=== PATIENT | female | born 1940 | race Caucasian/White ===

== ENCOUNTER 2020-11-22 19:12 | Observation (INO) | payer OTHER ==
--- OUTSIDE RECORDS SUMMARY | 2020-11-22 19:17 | XMS REPORT | Continuity of Care Document ---
:[address] [facility] t Address [address] [place] [address] Care Team Providers Name Role Phone Demetrius MIMS Primary Care Physician Alicia Romo Attending Clinician Anne MIMS, RZabrina Attending Clinician KALPANA Attending Clinician Unavailable VISIT, STRB XRAY Attending Clinician Unavailable Ganesh Lott Attending Clinician Gee Attending Clinician Anjana Farooq Attending Clinician Leandro Bowman Attending Clinician Payers Payer Name Policy Type Policy Number Effective Date Expiration Date S ource Problems Condition Condition Condition Status Onset Resolution Last Treating Co mments Source Name Details Category Date Date Treatment Clinician Date Subcutaneo Subcutaneo Disease Active Overview : Methodi us mass of us mass of 1-[address] right right 00:00: g of this [facility]osp[facility] thumb thumb 00 note l might be different from the original. Added automatic ally from request for surgery [id number] R13.10 - Diagnosis Active 2014-032015-01-12 M emoria "DYSPHAGIA 0-20 10:58:00 l , R13.10 - 00:01: Jhon alonso UNSPECIFIE "DYSPHAGIA 00 D" , UNSPECIFIE D" Active 5 [facility] [place] Hypothyroi Problem Active 2020-07-15 emoria dism 11-21 21:33:12 l (disorder) 00:00: Jhon n Hypothyroi 00 dism (disorder) Active 11/21/2013 Problem 07/15/2020 Data migrated from GE Lailaihuicity on 08/16/14. Medical Group,[facility] [place] Non-toxic Problem Active 2020-07-15 Mi moria multinodul 11-21 21:33:12 l ar goiter 00:00: [place] (disorder) Non-toxic 00 multinodul ar goiter (disorder) Active 11/21/2013 Problem 07/15/2020 Data migrated from GE Lailaihuicity on 08/16/14. [facility] [place] HYPOTHYROI Condition Active 2013-11-21 Memoria DISM 11-21 15:51:00 l 00:00: [place] HYPOTHYROI 00 DISM Active 11/21/2013 Condition 4 Medical Group GOITER, Condition Active 2013-11-21 Mi moria NONTOXIC 11-21 15:51:00 l MULTINODUL GOITER, 00:00: Her dickens AR NONTOXIC 00 MULTINODUL AR Active 4 Condition 11/21/2013 Medical Group Cystoid Problem Active 2020-07-15 Ulises promise macular 09-10 21:33:12 l retinal Cystoid 00:00: Jhon n degenerati macular 00 on retinal (disorder) degenerati on (disorder) Active 09/10/2012 Problem 07/15/2020 Data migrated from GE Lailaihuicity on 08/16/14. [facility] [place] Disorder Problem Active 2020-07-15 Mem oria of 09-10 21:33:12 l refraction Disorder 00:00: He rmann AND/OR of 00 accommodat refraction ion AND/OR (disorder) accommodat ion (disorder) Active 09/10/2012 Problem 07/15/2020 Data migrated from GE Lailaihuicity on 08/16/14. [facility] [place] CYSTOID Condition Active 2013-11-21 Me moria MACULAR 09-10 15:51:00 l DEGENERATI CYSTOID 00:00: Her dickens ON OF MACULAR 00 RETINA DEGENERATI ON OF RETINA Active 09/10/2012 Condition 4 Medical Group UNSPECIFIE Condition Active 2013-11-21 Memoria D DISORDER 09-10 15:51:00 l OF 00:00: [place] REFRACTION UNSPECIFIE 00 &ACCOMMODA D DISORDER TION OF REFRACTION &ACCOMMODA TION Active 09/10/2012 Condition 4 Medical Group Osteopenia Problem Active 2020-07-15 M emoria (disorder) 07-17 21:33:12 l 00:00: [place] Osteopenia 00 (disorder) Active 07/17/2012 Problem 07/15/2020 Data migrated from GE Lailaihuicity on 08/16/14. [facility] [place] OSTEOPENIA Condition Active 2013-11-21 Memoria 07-17 15:51:00 l 00:00: [place] OSTEOPENIA 00 Active 07/17/2012 Condition 4 Medical Group PREVENTIVE Condition Active 2013-11-21 Memoria HEALTH 07-17 15:51:00 l CARE 00:00: [place] PREVENTIVE 00 HEALTH CARE Active 07/17/2012 Condition 4 Medical [facility] Cortical Problem Active 2011-032020-07-15 Mem oria senile 0-18 21:33:12 l cataract Cortical 00:00: Herm adriane (disorder) senile 00 cataract (disorder) Active 01/05/2012 Problem 07/15/2020 Data migrated from GE Centricity on 08/16/14. Medical [facility] [place] Gastroesop Problem Active 2011-032020-07-15 M emoria hageal 0-18 21:33:12 l reflux 00:00: [place] disease Gastroesop 00 (disorder) hageal reflux disease (disorder) Active 01/05/2012 Problem 07/15/2020 Data migrated from GE Centricity on 08/16/14. [facility] [place] Pseudophak Problem Active 2011-032020-07-15 M emoria ia 0-18 21:33:12 l (disorder) 00:00: Jhon n Pseudophak 00 ia (disorder) Active 01/05/2012 Problem 07/15/2020 Data migrated from GE Centricity on 08/16/14. Medical Group,[facility] [place] GERD Condition Active 2011-032013-11-21 Mem oria 0-18 15:51:00 l GERD 00:00: [place] 00 Active 01/05/2012 Condition 4 Medical Group CATARACT, Condition Active 2011-032013-11-21 Memoria SENILE, 0-18 15:51:00 l CORTICAL 00:00: [place] CATARACT, 00 SENILE, CORTICAL Active 01/05/2012 Condition 4 Medical Group PSEUDOPHAK Condition Active 2011-032013-11-21 Memoria IA 0-18 15:51:00 l 00:00: [place] PSEUDOPHAK 00 IA Active 2 Condition 11/21/2013 Medical Group DIABETES Problem 2016-04-03 Mem oria MELLITUS 1- 05:00:25 l DIABETES 00:00: Jhon n MELLITUS 00 1 Problem 7 [facility] [place] Hypertensi Problem 2016-04-03 M emoria ve 1- 05:00:25 l disorder, 00:00: [place] systemic Hypertensi 00 arterial ve (disorder) disorder, systemic arterial (disorder) 03/20/1980 Problem 04/03/2016 [facility] Hyperlipid Problem 2016-04-03 M emoria emia 1- 05:00:25 l (disorder) 00:00: Jhon n Hyperlipid 00 emia (disorder) 03/20/1980 Problem 04/03/2016 [facility] [place] Mixed Problem Active 2020-07-15 Memor ia hyperlipid 03-20 21:33:12 l emia Mixed 00:00: [place] (disorder) hyperlipid 00 emia (disorder) Active [birth year]20/1959 Problem 07/15/2020 Data migrated from MessageBunkerty on 08/16/14. Medical Group, [facility] [place] MIXED Condition Active 2013-11-21 Mem oria HYPERLIPID 1- 15:51:00 l EMIA MIXED 00:00: [place] HYPERLIPID 00 EMIA Active 03/20/1959 Condition 4 Medical Group Foot pain Problem 2016-04-03 Me moria (finding) 05:00:25 l Foot [place] pain (finding) Problem 04/03/2016 [facility] Entire Problem 2016-04-03 Memor ia retina 05:00:25 l (body Entire [place] structure) retina (body structure) Problem 04/03/2016 1follows up with eye doctor regularly [facility] Diabetes Problem Active 2020-07-15 Mem oria mellitus 21:33:12 l (disorder) Diabetes He rmann mellitus (disorder) Active Problem 07/15/2020 Data migrated from [email or web address] on 08/16/14. [facility] [place] Essential Problem Active 2020-07-15 Me moria hypertensi 21:33:12 l on [place] (disorder) Essential hypertensi on (disorder) Active Problem 07/15/2020 Data migrated from [email or web address] on 08/16/14. [facility] [place] UNSPECIFIE Condition Active 2013-11-21 Memoria D 15:51:00 l ESSENTIAL [place] HYPERTENSI UNSPECIFIE ON D ESSENTIAL HYPERTENSI ON Active Condition 11/21/2013 Medical Group DM Condition Active 2013-11-21 Mem oria 15:51:00 l DM [place] Active Condition 11/21/2013 Medical Group PURE Condition Active 2013-11-21 Mem oria HYPERCHOLE 15:51:00 l STEROLEMIA PURE Jhon n HYPERCHOLE STEROLEMIA Active Condition 11/21/2013 Medical Group History of Past Illness Condition Condition Condition Status Onset Resolution Last Treating Co mments Source Name Details Category Date Date Treatment Clinician Date ACUTE Condition Inactiv 2011-032013-11-21 2013-11-21 Memoria ATOPIC e 0-18 15:51:00 15:51:00 l CONJUNCTIV ACUTE 00:00: Yasemin nn ITIS ATOPIC 00 CONJUNCTIV ITIS Inactive 01/05/2012 Condition 4 Medical Group Allergies, Adverse Reactions, Alerts This patient has no known allergies or adverse reactions. Family History Family Member Diagnosis Comments Start Date Stop Date Source Natural father [facility] Natural mother [facility] Natural mother Heart disease [facility] Social History Social Habit Start Date Stop Date Quantity Comments Source History [facility] St[facility] Drinks Hospit al History SDOH [facility] Tobacco use and 2020-07-22 2020-07-22 Never used [facility] exposure 00:00:00 00:00:00 Hospital Alcohol intake 2020-07-22 2020-07-22 Lifetime [facility] 00:00:00 00:00:00 non-drinker Hospital (finding) History SDOH 2020-06-12 2020-06-12 1 [facility] Alcohol Frequency 00:00:00 00:00:00 Hospita l Social History 2016-03-23 2016-03-23 [facility] 14:17:21 14:17:21 Sex [birth year] At [birth year] F [facility] 00:00:00 00:00:00 Hospital Smoking Status Start Date Stop Date Source Never smoker [facility] Medications Ordered Filled Start Stop Current Ordering Indication Dosage Frequency Signature Comments Components Source Medication Medication Date Date Medication? Clinician (SIG) Name Name ondansetron Yes 4mg Q8H Take 1 Meth jayashree ODT (Zofran 06-12 tablet (4 st ODT) 4 MG 00:00: mg total) Hos shakila disintegrat 00 by mouth l ing tablet every 8 (eight) hours as needed for nausea for up to 10 doses. nitrofurant No 100mg Q.5D Take 1 Me thodi oin, 06-[address] macrocrysta 00:00: 04:59 (100 mg Ho spita l-monohydra 00 :00 total) by l te, mouth 2 (MACROBID) (two) 100 MG times a capsule day for 7 days. Sulfamethox Yes 1 tab, PO, Memoria azole 800 -06 BID, X 7 l MG / 20:04: day, # 14 [place] Trimethopri 00 tab, 0 m 160 MG Refill(s), Oral Tablet Pharmacy: [Bactrim] [facility], 154.94, cm, 09/23/19 14:38:00 CDT, Height, 67.955, kg, 09/23/19 14:38:00 CDT, Weight levothyroxi Yes 50ug QD Take 50 Met hodi ne 1-[address] (SYNTHROID, 20:25: mouth Hospi ta LEVOXYL) 50 54 every l mcg tablet morning. CALCIUM Yes Take by Methodi ORAL 1-[address] 20:25: Hospita 54 l benzonatate Yes 100 mg = 1 Memoria 100 MG Oral 6-05 cap, PO, l Capsule 19:53: TID, PRN Jhon n [Tessalon 00 as needed Perles] for cough, X 10 day, # 30 cap, 0 Refill(s), Pharmacy: [facility] Doxycycline Yes 100 mg = 1 Memoria Monohydrate 6-05 tab, PO, l 100 MG Oral 19:53: Q12H, X 7 H ermann Tablet 00 day, # 14 tab, 0 Refill(s), Pharmacy: [facility] Cefuroxime No 500 mg = 1 M emoria 500 MG Oral 6-03 tab, PO, l Tablet 12:48: BID, X 10 Jhon n [Ceftin] 00 day, # 20 tab, 0 Refill(s), Pharmacy: [facility] 3 ML Yes 9 unit, Memoria Insulin, 6-03 SUB-Q, l Aspart, 12:37: TID-Before Herm adriane Human 100 00 Meals, 0 UNT/ML Pen Refill(s) Injector [NovoLog] irbesartan Yes Methodi (AVAPRO) 2-24 st 150 MG 00:00: Hospita tablet 00 l pravastatin Yes Method i (PRAVACHOL) 2-24 st 10 MG 00:00: Hospita tablet 00 l HUMALOG Yes Methodi KWIKPEN 100 2-22 st unit/mL 00:00: Hospita injection 00 l pen LANTUS Yes Methodi SOLOSTAR 1-24 st 100 unit/mL 00:00: Hospit a injection 00 l (pen) Lactated No René IV, start M emoria Ringers 1-13 Rivera date l Injection 16:30: 04/01/16 Herm adriane 00 10:30:00 SKI PRODUCTION SUPERVISOR, stop date 04/01/16 10:30:00 SKI [employer]ODUCTION SUPERVISOR ondansetron No René 4 mg = 2 Memoria 1-13 Rivera mL, l 15:56: Injection, [place] 00 IV, Once, first dose 04/01/16 9:56:00 SKI PRODUCTION SUPERVISOR, stop date 04/01/16 9:56:00 SKI PRODUCTION SUPERVISOR ketorolac No René 15 mg = Me moria 1-13 Rivera 0.5 mL, l 15:56: Injection, [place] 00 IV, Once, first dose 04/01/16 9:56:00 SKI PRODUCTION SUPERVISOR, stop date 04/01/16 9:56:00 SKI PRODUCTION SUPERVISOR HYDROmorpho No René 0.5 mg = Memoria ne 1-13 [place] 0.25 mL, l 15:32: Injection, [place] 00 IV, Once, first dose 04/01/16 9:32:00 SKI PRODUCTION SUPERVISOR, stop date 04/01/16 9:32:00 SKI PRODUCTION SUPERVISOR promethazin No René 12.5 mg = Memoria e 1-13 [place] 0.5 mL, l 15:05: Injection, [place] 00 IM, Once PRN for severe nausea, first dose 04/01/16 9:05:00 SKI PRODUCTION SUPERVISOR ondansetron No René 4 mg = 2 Memoria 1-13 Rivera mL, l 15:05: Injection, [place] 00 IV Push, q15min PRN for nausea/vom iting, order duration: 2 doses, first dose 04/01/16 9:05:00 SKI PRODUCTION SUPERVISOR, stop date Limited # of times diphenhydrA No René 25 mg = Memoria MINE 1-13 [place] 0.5 mL, l 15:05: Injection, [place] 00 IV Push, Once PRN for itching, first dose 04/01/16 9:05:00 SKI PRODUCTION SUPERVISOR Saline Lock No René 10 mL, M emoria Flush 1-13 [place] Soln, IV l 15:05: Push, As Indicated PRN for flush, first dose 04/01/16 9:05:00 SKI PRODUCTION SUPERVISOR LR 1,000 mL No René 1,000 mL, Memoria 1-13 Rivera IV, 75 l 15:05: mL/hr, [place] 00 start date 04/01/16 9:05:00 SKI PRODUCTION SUPERVISOR Dilaudid No René 0.5 mg = Me moria 1-13 [place] 0.25 mL, l 15:05: Injection, [place] 00 IV Push, q10min PRN for pain severe (7-10), first dose 04/01/16 9:05:00 SKI PRODUCTION SUPERVISOR Xopenex 2016- No René 0.63 mg = Me moria 0.63 mg/3 1-13 Rivera 3 mL, l mL 15:05: Soln, NEB, [place] inhalation 00 Once PRN solution for wheezing, first dose 04/01/16 9:05:00 SKI PRODUCTION SUPERVISOR Demerol HCl No René 12.5 mg = Memoria 1-13 [place] 0.25 mL, l 15:05: Injection, [place] 00 IV Push, Once PRN for shivers, first dose 04/01/16 9:05:00 [employer]I [employer]ODUCTION SUPERVISOR midazolam No René 1 mg = 1 M emoria 1-13 Rivera mL, l 15:04: Injection, [place] 00 IV, Once, first dose 04/01/16 9:04:00 SKI PRODUCTION SUPERVISOR, stop date 04/01/16 9:04:00 SKI PRODUCTION SUPERVISOR fentaNYL No René 50 mcg = 1 Memoria 1-13 [place] mL, l 15:04: Injection, [place] 00 IV, Once, first dose 04/01/16 9:04:00 SKI PRODUCTION SUPERVISOR, stop date 04/01/16 9:04:00 SKI PRODUCTION SUPERVISOR dexamethaso No René 8 mg = 2 Memoria ne 1-13 [place] mL, l 15:03: Injection, [place] 00 IV, Once, first dose 04/01/16 9:03:00 SKI PRODUCTION SUPERVISOR, stop date 04/01/16 9:03:00 SKI PRODUCTION SUPERVISOR Misc No René 1,000 mL, Memor ia Medication 04-01 [place] Soln-IV, l 15:00: IV, Once, [place] 00 first dose 04/01/16 9:00:00 SKI PRODUCTION SUPERVISOR, stop date 04/01/16 9:00:00 SKI PRODUCTION SUPERVISOR ceFAZolin 0 No René 2 gm, Ulises promise 1-13 [place] Soln-IV, l 15:00: IV [place] 00 Piggyback, Once, first dose 04/01/16 9:00:00 SKI PRODUCTION SUPERVISOR, stop date 04/01/16 9:00:00 SKI PRODUCTION SUPERVISOR ePHEDrine No René 10 mg = Me moria 1-13 Rivera 0.2 mL, l 14:57: Injection, [place] 00 IV, Once, first dose 04/01/16 8:57:00 SKI PRODUCTION SUPERVISOR, stop date 04/01/16 8:57:00 SKI PRODUCTION SUPERVISOR lidocaine No René 3 mL, Ulises promise 04-01 [place] Injection, l 14:56: IV, Once, first dose 04/01/16 8:56:00 SKI PRODUCTION SUPERVISOR, stop date 04/01/16 8:56:00 SKI PRODUCTION SUPERVISOR propofol No René 100 mg = Me moria 04-01 [place] 10 mL, l 14:56: Emulsion, [place] 00 IV, Once, first dose 04/01/16 8:56:00 SKI PRODUCTION SUPERVISOR, stop date 04/01/16 8:56:00 SKI PRODUCTION SUPERVISOR fentaNYL No René 50 mcg = 1 Memoria 04-01 [place] mL, l 14:50: Injection, IV, Once, first dose 04/01/16 8:50:00 SKI PRODUCTION SUPERVISOR, stop date 04/01/16 8:50:00 SKI PRODUCTION SUPERVISOR midazolam No René 1 mg = 1 M emoria 04-01 [place] mL, l 14:50: Injection, IV, Once, first dose 04/01/16 8:50:00 SKI PRODUCTION SUPERVISOR, stop date 04/01/16 8:50:00 SKI PRODUCTION SUPERVISOR ceFAZolin No Matthew Montoya 2 gm, M emoria 04-01 Soln-IV, l 12:00: IV Piggyback, Once, infuse over 30 minutes, first dose 04/01/16 6:00:00 SKI PRODUCTION SUPERVISOR, stop date 04/01/16 6:00:00 SKI PRODUCTION SUPERVISOR, patient weight 50-120 kg, Prophylaxi s Lidocaine No Mikhail K 0.2 mL, Mem oria 2% 0.2 mL 04-01 Pineda Injection, l IV Start 11:32: Subcutaneo Her dickens [[facility]] 00 us, Once PRN for other (see comment), first dose 04/01/16 5:32:00 SKI PRODUCTION SUPERVISOR LR 1,000 mL No Mikhail K 1,000 mL, Memoria 04-01 Pineda IV, 30 l 11:32: mL/hr, [place] start date 04/01/16 5:32:00 SKI PRODUCTION SUPERVISOR atorvastati Yes 40 mg = 1 M emoria n 40 mg 03-28 tabs, l oral tablet 19:34: Oral, Yasemin nn 00 Daily, 0 Refill(s), high cholestero l HumaLOG Yes 10 units, Memor ia 03-28 Subcutaneo l 19:33: us, TIDAC, instructed to hold morning of surgey, 0 Refill(s), DMinstruct ed to hold morning of surgey ILEVRO Yes one droP Q Memor ia 24 DAY OU l 00:00: Avapro 150 Yes mg tabs, Mem oria mg oral 507 Oral, l tablet 20:47: Daily, instructed to hold mornong of surgery, 0 Refill(s)i nstructed to hold mornong of surgery Vitamin D3 Yes IntUnit Ulises promise 2000 intl 507 caps, l units oral 20:46: Oral, Jhon n capsule 00 Daily, 0 Refill(s) Vitamin D3 Yes Oral, 0 Ulises promise 07 Refill(s) l 20:45: Lantus Yes 32 units, Memori a 07 Subcutaneo l 20:45: us, qHS, 0 Refill(s), DM Prilosec Yes mg, Oral, Ulises promise OTC 5-07 Daily, l 20:45: instructed to take morning of surgery, 0 Refill(s)i nstructed to take morning of surgery NovoLog No 12 units, Memor ia 07-24 Subcutaneo l 20:45: us, TIDAC, 0 Refill(s) pravastatin No mg tabs, Me moria 20 mg oral 507 Oral, qHS, l tablet 20:39: 0 Refill(s) Synthroid Yes mcg tabs, Mem oria 50 mcg 07 Oral, qAM, l (0.05 mg) 20:38: instructed He rmann oral tablet 00 to take morning of surgery, 0 Refill(s)i nstructed to take morning of surgery VITAMIN D 3 Yes One po Ulises promise 2000 IU 4-30 daily l 00:00: ACTONEL 150 No One po Ulises promise MG TABS 4-30 monthly l 00:00: SYNTHROID 2011-03 Yes 1 tab po Mem oria 50 MCG TABS 0-18 q day l 00:00: AVAPRO 150 2011-03 Yes 1 tab po q M emoria MG TABS 0-18 day l 00:00: PRAVACHOL 2011-03 Yes 1 tab po q Me moria 20 MG TABS 0-18 day l 00:00: PRILOSEC 2011-03 Yes 1 tab po q Mem oria OTC 20 MG 0-18 day l TBEC 00:00: PATANOL 0.1 2011-03 No one drop Me moria % SOLN 0-18 two times l 00:00: a day NOVOLOG 2011-03 Yes 13 Units Memori a FLEXPEN 100 0-18 before l UNIT/ML 00:00: each meal Yasemin nn SOLN 00 LANTUS 100 2011-03 Yes 36 Units Mem oria UNIT/ML 0-18 at night l SOLN 00:00: omeprazole 2011-03 Yes 1 tab po q M ethodi OTC 0-[address] (PriLOSEC 00:00: Hospita OTC) 20 MG 00 l EC tablet Immunizations Ordered Immunization Filled Immunization Date Status Commen ts Source Name Name tetanus-diphtheria 2018-11-01 Completed Memori al toxoids 00:00:00 [place] diphtheria/pertussis 2018-11-01 Completed Ulises rial , acel/tetanus adult 00:00:00 [facility] tetanus-diphtheria 2018-11-01 Completed Memori al toxoids<sup>1</sup> 00:00:00 Yasemin nn Vital Signs Vital Name Observation Time Observation Value Comments Source Body height 2020-06-12 15:18:00 157.5 cm [facility] Body weight 2020-06-12 15:18:00 63.504 kg [facility] BMI 2020-06-12 15:18:00 25.61 kg/m2 [facility] Systolic blood 2020-06-12 15:09:00 161 mm[Hg] [facility] pressure Diastolic blood 2020-06-12 15:09:00 72 mm[Hg] [facility] pressure Heart rate 2020-06-12 15:09:00 87 /min [facility] Respiratory rate 2020-06-12 15:09:00 18 /min [facility] Oxygen saturation in 2020-06-12 15:09:00 97 /[facility]terial blood by Pulse oximetry Body temperature 2020-06-12 14:54:57 36.67 Sonia [facility] Systolic (mm Hg) 2019-09-23 19:38:00 Ulises rial [place] Diastolic (mm Hg) 2019-09-23 19:38:00 Mem orial [place] Heart Rate 2019-09-23 19:38:00 [facility] [place] Temperature Oral (F) 2019-09-23 19:38:00 98.0 F Memorial [place] Height 2019-09-23 19:38:00 154.94 cm Memorial [place] Weight 2019-09-23 19:38:00 [facility] [place] BMI Calculated 2019-09-23 19:38:00 Memori al [place] Systolic (mm Hg) 2018-11-14 19:16:00 Ulises rial [place] Diastolic (mm Hg) 2018-11-14 19:16:00 Mem orial [place] Heart Rate 2018-11-14 19:16:00 [facility] [place] Temperature Oral (F) 2018-11-14 19:16:00 98.1 F Memorial [place] Height 2018-11-14 19:16:00 154.94 cm [facility] [place] Weight 2018-11-14 19:16:00 [facility] [place] BMI Calculated 2018-11-14 19:16:00 Memori al [place] Systolic (mm Hg) 2018-11-05 15:34:00 Ulises rial [place] Diastolic (mm Hg) 2018-11-05 15:34:00 Mem orial [place] Heart Rate 2018-11-05 15:34:00 [facility] [place] Temperature Oral (F) 2018-11-05 15:34:00 98.3 F [facility] [place] Height 2018-11-05 15:34:00 154.94 cm [facility] [place] Weight 2018-11-05 15:34:00 [facility] [place] BMI Calculated 2018-11-05 15:34:00 Memori al [place] BMI Calculated 2018-08-22 18:56:00 Memori al [place] Height 2018-08-22 18:56:00 154.94 cm [facility] [place] Heart Rate 2018-08-22 18:56:00 [facility] [place] Temperature Oral (F) 2018-08-22 18:56:00 101.1 F [facility] [place] Weight 2018-08-22 18:56:00 [facility] [place] Systolic (mm Hg) 2018-08-22 18:56:00 Ulises rial [place] Diastolic (mm Hg) 2018-08-22 18:56:00 Mem orial [place] BMI Calculated 2018-08-20 12:31:00 Memori al [place] Weight 2018-08-20 12:31:00 [facility] [place] Systolic (mm Hg) 2018-08-20 12:31:00 Ulises rial [place] Diastolic (mm Hg) 2018-08-20 12:31:00 Mem orial [place] Heart Rate 2018-08-20 12:31:00 [facility] [place] Temperature Oral (F) 2018-08-20 12:31:00 98.3 F [facility] [place] Height 2018-08-20 12:31:00 157.4 cm [facility] [place] Respitory Rate 2016-04-01 18:00:00 Memori al [place] Systolic (mm Hg) 2016-04-01 17:10:00 Ulises rial [place] Heart Rate 2016-04-01 17:10:00 [facility] [place] Respitory Rate 2016-04-01 17:10:00 Memori al [place] Systolic (mm Hg) 2016-04-01 17:00:00 Ulises rial [place] Heart Rate 2016-04-01 17:00:00 [facility] [place] Respitory Rate 2016-04-01 17:00:00 Memori al [place] Heart Rate 2016-04-01 16:50:00 [facility] [place] Systolic (mm Hg) 2016-04-01 16:50:00 Ulises rial [place] Temperature Oral (F) 2016-04-01 16:20:00 37.2 Sonia [facility] [place] Weight 2016-04-01 11:37:00 [facility] [place] Temperature Oral (F) 2016-04-01 11:37:00 37 Sonia [facility] [place] Height 2016-04-01 11:37:00 157.48 cm [facility] [place] Weight 2016-03-28 19:27:00 [facility] [place] Height 2016-03-28 19:27:00 157.48 cm [facility] [place] Weight 2013-11-21 19:35:00 [facility] [place] Temperature Oral (F) 2013-11-21 19:35:00 98.1 F [facility] [place] Systolic (mm Hg) 2013-11-21 19:35:00 Ulises rial [place] Diastolic (mm Hg) 2013-11-21 19:35:00 Mem orial [place] Heart Rate 2013-11-21 19:35:00 [facility] [place] Weight 2012-07-17 19:39:51 [facility] [place] Height 2012-07-17 19:39:51 [facility] [place] Temperature Oral (F) 2012-07-17 19:39:51 98.1 F [facility] [place] Heart Rate 2012-07-17 19:39:51 [facility] [place] Systolic (mm Hg) 2012-07-17 19:39:51 Ulises rial [place] Diastolic (mm Hg) 2012-07-17 19:39:51 Mem orial [place] Weight 2012-01-05 13:28:10 [facility] [place] Height 2012-01-05 13:28:10 [facility] [place] Temperature Oral (F) 2012-01-05 13:28:10 98.3 F [facility] [place] Systolic (mm Hg) 2012-01-05 13:28:10 Ulises rial [place] Diastolic (mm Hg) 2012-01-05 13:28:10 Mem orial [place] Heart Rate 2012-01-05 13:28:10 [facility] [place] Procedures Procedure Date / Time Performing Clinician Source Performed URINE CULTURE 2020-06-12 16:01:00 [facility] CT HEAD WO CONTRAST 2020-06-12 15:40:04 [facility] URINALYSIS SCREEN AND 2020-06-12 15:30:00 [facility] MICROSCOPY, WITH REFLEX TO CULTURE ECG ED PRELIMINARY 2020-06-12 15:28:08 [facility] INTERPRETATION HC COMPLETE BLD COUNT 2020-06-12 15:23:00 [facility] W/AUTO DIFF TROPONIN 2020-06-12 15:23:00 [facility] BASIC METABOLIC PANEL 2020-06-12 15:23:00 [facility] ESTIMATED GFR 2020-06-12 15:23:00 [facility] ECG 12-LEAD 2020-06-12 15:10:02 [facility] APPLICATION SHORT LEG 2016-04-01 15:19:00 Matthew Montoya SPLINT-CALF TO FOOT [id number] (Right)<sup>1</sup> ARTHROPLASTY TOE 2016-04-01 15:19:00 Matthew Montoya rmann W/RESECTION OF JOINT W/ IMPLANT [id number] (Right)<sup>2</sup> Magnetic resonance (eg, 2015-08-05 04:00:00 Ulisesdax Arechiga proton) imaging, abdomen; without contrast material(s) vaginal Pap smear results 2011-02-08 15:03:48 [facility] [place] mammogram 2011-02-08 15:03:18 [facility] Her dickens bone density 2011-02-08 15:02:[address] [facility] colonoscopy 2007-02-05 15:03:[address] [facility] Bilateral tubal ligation Moises mcknight [place] Biopsy<sup>1</sup> [facility] adriane Bunionectomy<sup>2</sup> Moises mcknight [place] Cataract [facility] surgery<sup>3</sup> Colonoscopy<sup>5</sup> [facility]oden[facility]op [facility] y<sup>6</sup> Excision of calcaneal [facility]<sup>7</sup> Left foot<sup>8, 9</sup> [facility] [place] Right eye<sup>10</sup> [facility] Right foot<sup>12</sup> [facility] Plan of Care Planned Activity Planned Date Details Comments Source Future Scheduled Test 65+ PNEUMOCOCCAL [facility] VACCINE (1 of 2 - PPSV23) [code = 65+ PNEUMOCOCCAL VACCINE (1 of 2 - PPSV23)] Future Scheduled Test DIABETES: RETINAL EYE [facility] EXAM [code = DIABETES: RETINAL EYE EXAM] Future Scheduled Test DIABETIC FOOT EXAM [facility] [code = DIABETIC FOOT EXAM] Future Scheduled Test URINE [facility]CROALBUMIN [facility] [code = URINE MICROALBUMIN] Future Scheduled Test COVID-19 VACCINE (1) [facility] [code = COVID-19 VACCINE (1)] Future Scheduled Test SHINGLES VACCINES (#1) [facility] [code = SHINGLES VACCINES (#1)] Future Scheduled Test INFLUENZA VACCINE [code [facility] = INFLUENZA VACCINE] Encounters Start End Encounter Admission Attending Care Care Encounter Source Date/Time Date/Time Type Type Clinicians Facility Department ID 2020-11-22 Preadmit nullFlavo [facility] [id number] Mi moria 19:15:30 r roxanna Arechiga 2020-07-13 2020-07-13 Ambulatory nullFlavo [facility] [id number] Memoria 16:00:00 16:00:00 Pre-Reg r Internal 13 l [facility] Hawk Francoberg 2020-07-13 2020-07-13 Outpatient [facility] [id number] 11:00:00 11:00:00 Olga Lopezgel 2020-06-12 2020-06-12 Emergency Rivenes, 1.2.840.1 [id number] Methodi 09:55:00 11:47:00 Yaneth Urrutia [id number] 3.430.2.7 Hospit a .[id number] l . 2020-06-12 2020-06-12 Emergency [facility] [id number] Bernie 00:00:00 00:00:00 YANETH Marte1 Tanya i 2019-09-23 2019-09-24 [place] [id number] Memoria 19:15:00 04:59:59 r Internal 12 Jovan Rain 2019-09-23 2019-09-23 Outpatient [facility]ast [facility] [id number] 14:15:00 23:59:59 Olga Lopezgel 2019-09-23 2019-09-23 Outpatient MHIE IE [id number] Memoria 14:15:00 14:15:00 12 roxanna Arechiga 2019-05-24 2019-05-24 Outpatient [facility] [id number] Bernie 00:00:00 00:00:00 LOVE Martínez i 2018-11-14 2018-11-15 Outpatient nullFlavo [facility] [id number] Memoria 19:15:00 04:59:59 r Internal 11 Jovan Rain 2018-11-14 2018-11-14 [id number] 14:15:00 23:59:59 Olga Vargas 2018-11-14 2018-11-14 Outpatient [facility]IE [facility] [id number] Memoria 14:15:00 14:15:00 11 roxanna Hawk 2018-11-05 2018-11-06 Between nullFlavo [facility] [id number] Memoria 16:51:09 16:51:09 Visit r Internal 04 l [facility] Hawk Rain 2018-11-05 2018-11-06 Outpatient [facility] [id number] 11:51:09 11:51:09 04 2018-11-05 2018-11-06 Outpatient nullFlavo [facility] [id number] Memoria 16:00:00 04:59:59 r Radiology 10 roxanna alonso 2018-11-05 2018-11-06 Outpatient nullFlavo [facility] [id number] Memoria 15:30:00 04:59:59 r Internal 09 [facility] [place] Rain 2018-11-05 2018-11-05 Outpatient VISIT, MG MG [id number] 11:00:00 23:59:59 NURSE STRB 10 [place] 2018-11-05 2018-11-05 Outpatient Lott, MH[facility] MG [id number] 10:30:00 23:59:59 Nedra Alonso 09 2018-11-05 2018-11-05 Outpatient MHIE MHIE [id number] Memoria 11:00:00 11:00:00 10 roxanna Arechiga 2018-11-05 2018-11-05 Outpatient MHIE MHIE [id number] Memoria 10:30:00 10:30:00 09 roxanna Arechiga 2018-08-22 2018-08-23 Between nullFlavo [facility] [id number] Memoria 20:14:44 20:14:44 Visit r Internal 03 [facility] [place] Rain 2018-08-22 2018-08-23 Outpatient MHMG [facility] [id number] 15:14:44 15:14:44 03 2018-08-22 2018-08-23 Outpatient nullFlavo [facility] [id number] Memoria 19:30:00 04:59:59 r Radiology 08 roxanna alonso 2018-08-22 2018-08-23 Outpatient nullFlavo [facility] [id number] Memoria 19:15:00 04:59:59 r Internal 07 l Medicine [place] Rain 2018-08-22 2018-08-22 Outpatient RENAN, [facility] [id number] 14:30:00 23:59:59 NURSE STRLeandro Marlene HANNAH 2018-08-22 2018-08-22 Outpatient Demetrius [facility] [id number] 14:15:00 23:59:59 Olga Tana Vargas 2018-08-22 2018-08-22 Outpatient MHIE MHIE [id number] Memoria 14:30:00 14:30:00 08 roxanna Arechiga 2018-08-22 2018-08-22 Outpatient MHIE MHIE [id number] Memoria 14:15:00 14:15:00 07 roxanna Arechiga 2018-08-20 2018-08-21 Outpatient nullFlavo [facility] Family 4 [id number] Memoria 12:30:00 04:59:59 r Medicine 06 l Briseyda alonso 2018-08-20 2018-08-20 Outpatient Gee MG MG [id number] 07:30:00 23:59:59 Yadira 06 2018-08-20 2018-08-20 Outpatient MHIE MHIE [id number] Memoria 07:30:00 07:30:00 06 roxanna Arechiga 2017-12-07 2017-12-07 Ambulatory nullFlavo [facility] Family 4 [id number] Memoria 18:45:00 18:45:00 Pre-Reg r Medicine 05 roxanna alonso 2017-12-07 2017-12-07 Outpatient MHIE MHIE [id number] Memoria 13:45:00 13:45:00 05 roxanna Arechiga 2017-12-07 2017-12-07 Outpatient Shobha Farooq [facility] [id number] 13:45:00 13:45:00 Anjana 05 2016-05-18 2016-05-18 Outpatient MHIE MHIE [id number] Memoria 10:00:00 10:00:00 04 roxanna Arechiga 2016-05-17 2016-05-17 Outpatient MHIE MHIE [id number] Memoria 15:30:00 15:30:00 03 roxanna Arechiga 2016-05-17 2016-05-17 Outpatient MHIE MHIE [id number] Memoria 15:15:00 15:15:00 02 roxanna Arechiga 2016-04-01 2016-04-01 Outpatient 2.16.840. 2.16.840.1. 4 [id number] Memoria 05:23:48 12:00:00 [id number]. [id number] l 3.2080.20 81.1999 Jhon n 00 [facility] 2016-04-01 2016-04-01 Outpatient nullFlavo [facility] [id number] Memoria 05:23:00 12:00:00 r roxanna Hawk 2016-03-23 2016-03-23 Outpatient IE IE [id number] Memoria 13:30:00 13:30:00 01 roxanna Arechiga 2016-03-23 2016-03-23 Outpatient IE IE [id number] Memoria 09:00:00 09:00:00 00 roxanna Arechiga 2015-08-05 2015-08-05 Outpatient 2.16.840. 2.16.840.1. 3 [id number] Memoria 08:50:42 23:59:59 [id number]. [id number] l 3.20 81.1999 [facility] n [facility] 2015-08-05 2015-08-05 Outpatient nullFlavo [facility] [id number] Memoria 08:50:42 08:50:42 r roxanna Arechiga 2015-07-14 2015-07-14 Outpatient 2.16.840. 2.16.840.1. 3 [id number] Memoria 08:14:40 23:59:59 1.842959. [id number] l 3.2080.20 81.1999 Jhon n 00 [facility] 2015-07-14 2015-07-14 Outpatient nullFlavo [facility] [id number] Memoria 08:14:40 08:14:40 r roxanna Arechiga 2015-01-12 2015-01-13 Outpt Diag nullFlavo [facility] [id number] Memoria 15:49:00 04:59:00 Services r Outpatient 02 l [facility] [place] Grover 2015-01-12 2015-01-12 Outpatient Jefferysangita, 29 [facility] [id number] 10:49:00 23:59:00 Juan B 02 2014-01-29 2014-01-30 Outpt Diag jonnaFlavo [facility] [id number] Memoria 19:42:00 05:59:00 Services r Outpatient 01 l Franklyn Agudelo 2014-01-29 2014-01-29 Outpatient Shobha Farooq 2.16.840. 2.16.840.1 . [id number] 13:42:00 23:59:00 Hla [id number]. [id number] 01 3.615.0.1 [id number] [id number] 2013-11-21 Lab Report nullFlavo [place] [id number] Memoria 00:00:00 00:00:00 r [place] [facility] [id number] roxanna Ferreira [facility] 2013-11-21 2013-11-21 Lab Report nullFlavo [place] [id number] Memoria 00:00:00 00:00:00 r [place] Medical [id number] [facility] Results Test Description Test Time Test Comments Results Result Comments Source ECG 12 lead 2020-06-14 00:06:24 Test Item Value Reference Range Interpretation Comme nts Ventricular rate (test code = 253) Atrial rate (test code = 255) WI interval (test code = 266) QRSD interval (test code = 260) QT interval (test code = 264) QTC interval (test code = 265) P axis 1 (test code = 267) QRS axis 1 (test code = 268) T wave axis (test code = 270) EKG impression (test code = 273) Normal sinus rhythm with sinus arrhythmia-Low voltage QRS-Cannot rule out Anterior infarct , age undetermined-Abnormal ECG-No previous ECGs available[facility] [id number] 15:58:15EXAMINATION: CT HEAD WO CONTRAST CLINICAL HISTORY: Vestibular syndrome COMPARISON: None. TECHNIQUE: Noncontrast head CT performed using radiation dose reduction techniques. Technical factors are evaluated and adjusted to ensure appropriate moderation of exposure. Automated dose management technology is applied to adjust radiation exposure while achieving a diagnostic quality image. FINDINGS: No evidence of hemorrhage, mass lesion, or midline shift. Mild nonspecific periventricular and subcortical white matter hypodensities most likely represent chronic microvascular ischemic changes. Shah-white matter differentiation is preserved with no evidence of acute territorial infarction. Mild symmetric enlargement of the ventricles and sulci consistent with age-related brain volume loss. There is no extra-axial fluid collection. Mild cerebrovascular calcifications. Trace mucosal thickening left maxillary sinus. Mastoid air cells are clear. Bilateral lens extractions. Bones are unremarkable. IMPRESSION: No acute intracranial abnormality. [id number] Dictated and approved by regional vice president surgical sales/fellow: Adelaida Bailey M.D. I, COLBY LEMUS MD, personally reviewed the images and resident's/fellow's findings and agree with the final report.[facility], Radiology Results Incoming- 06/12/2020 11:01 AM CDT EXAMINATION: CT HEAD WO CONTRASTCLINICAL HISTORY: Vestibular syndromeCOMPARISON: None.TECHNIQUE: Noncontrast head CT performed using radiation dose reduction techniques. Technical factors are evaluated and adjusted to ensure appropriate moderation of exposure. Automated dose management technology is applied to adjust radiation exposure while achieving a diagnostic quality image. FINDINGS:No evidence of hemorrhage, mass lesion, or midline shift. Mild nonspecific periventricular and subcortical white matter hypodensities most likely represent chronic microvascular ischemic changes. Shah-white matter differentiation is preserved with no evidence of acute territorial infarction.Mild symmetric enlargement of the ventricles and sulci consistent with age-related brain volume loss. There is no extra-axial fluid collection. Mild cerebrovascular calcifications. Trace mucosal thickening left maxillary sinus. Mastoid air cells are clear. Bilateral lens extractions. Bones are unremarkable.IMPRESSION:No acute intracranial abnormality. [id number] and approved by regional vice president surgical sales/fellow: Kati Blanco, COLBY LEMUS MD, personally reviewed the images and resident's/fellow's findings and agree with the final report. [facility] ED Preliminary Interpretation - Not an [id number] 15:28:08 Test Item Value Reference Range Interpretation Comments RAYO (test code = RAYO) Yaneth Rodríguez MD 06/12/2020 1:54 [facility] ED Preliminary Interpretation - Not an OrderPerformed by: Yaneth Rodríguez MDAuthorized by: Yaneth Rodríguez MD ECG reviewed by ED Physician in the absence of a registered nurse practitioner: yes Interpretation: Interpretation: abnormal Rate: ECG rate: 77 ECG rate assessment: normal Rhythm: Rhythm: sinus rhythm ST segments: ST segments: Non-specificT waves: T waves: non-specific Lab Interpretation Abnormal (test code = 27702-5) [facility]nhflgdbXMIKQNSGQU6281-89-25 16:30:38950Hqxegrbw [facility]ann[facility]ORY 2016-04-01 11:58:92877Yyhgjklx GgyotnxCzfwwqnjm2862-96-03 20:50:82005Aurxirnd UholucgKgqfvobfu3617-19-57 20:50:004.1[facility]orial RgpkcqhLoqpnitypl6529-94-75 20:50:0013.3Memorial KvigvloFsrwuketnn4527-30-27 20:50:0040.5[facility] [place] Ob/Lgb4530-37-91 15:03:48NormalMemorial OqdgghyEfegnmgll1977-86-24 15:03:48 NormalMemorial IdmgnzgXiyddjkom2287-88-06 15:03:48[facility]orial [facility]
[2020-11-22 22:45] LABS: Protime INR 0.91
[2020-11-22 22:47] LABS: Basophils % 0.6 % (0-1.3); Hematocrit 38.2 % (36.0-45.0); Lymphocytes % 16.3 % (15.3-44.8); MPV 8.7 fL (7.6-11.3); RBC Red Blood Cell Count 4.72 M/uL (3.86-4.86)
[2020-11-22] MEDS ORDERED: ASPIRIN 81 MG CHEWABLE TABLET ONE (23:32)
[2020-11-23 00:03] LABS: ALT/SGPT 15 U/L (12-78); AST/SGOT 17 U/L (15-37); Albumin 3.7 g/dL (3.4-5.0); Alkaline Phosphatase 96 U/L (45-117); BUN Blood Urea Nitrogen 21 mg/dL (7-18); Bicarbonate 28 mmol/L (21-32); Bilirubin Direct < 0.1 mg/dL (0-0.2); Bilirubin Total 0.2 mg/dL (0.2-1.0); Glucose Level 303 mg/dL (74-106); NT PRO-BNP 71 pg/mL (<450); Potassium 4.4 mmol/L (3.5-5.1); Protein, Total 7.3 g/dL (6.4-8.2); Sodium Level 138 mmol/L (136-145); Troponin (Emerg Dept Use Only) < 0.02 ng/mL (0.0-0.045)
--- NOTE | 2020-11-23 00:23 | ER ---
Nurse's Notes [facility] Name: Pretty Guevara Age: 80 yrs Sex: Female : 1940 Arrival Date: 11/22/2020 Time: 19:16 Bed 14 Private MD: Diagnosis: Chest pain, unspecified Presentation: 11/22 21:27 Chief complaint: Patient states: Chest pain on and off for one week, back pain, nausea, kg elevated B/P x 1 week. Pt just 10 days ago. Coronavirus screen: Vaccine status: Patient reports receiving the 2nd dose of the covid vaccine. Date July 06, 2020 Patient reports receiving the 1st dose of the Covid vaccine. Date June 19, 2020. Ebola Screen: Patient negative for fever greater than or equal to 101.5 degrees Fahrenheit, and additional compatible Ebola Virus Disease symptoms Patient denies exposure to infectious person. Patient denies travel to an Ebola-affected area in the 21 days before illness onset. Initial Sepsis Screen: Does the patient meet any 2 criteria? No. Patient's initial sepsis screen is negative. Does the patient have a suspected source of infection? No. Patient's initial sepsis screen is negative. Risk Assessment: Do you want to hurt yourself or someone else? Patient reports no desire to harm self or others. Onset of symptoms was November 14, 2020. 21:27 Method Of Arrival: Ambulatory kg 21:27 Acuity: STACIE 3 kg Triage Assessment: 21:31 General: Appears in no apparent distress. Behavior is calm, cooperative, quiet. Pain: kg Denies pain. Cardiovascular: Reports chest pain, nausea, "Heart Burn", Back pain. Historical: - Allergies: 21:31 No Known Allergies; kg - Home Meds: 21:31 metoprolol tartrate oral [Active]; Synthroid 75 mcg Oral tab 1 tab once daily [Active]; kg Novolog U-100 Insulin aspart 100 unit/mL Sub-Q soln [Active]; Lantus U-100 Insulin 100 unit/mL Sub-Q crtg 30 Units nightly [Active]; - PMHx: 21:31 Hypertensive disorder; thyroid dysfunction; IDDM; kg - PSHx: 21:31 Terry Foot SX; kg - Immunization history:: Adult Immunizations up to date, Client reports receiving the 2nd dose of the Covid vaccine, Date received: July 06, 2020 Client reports receiving the 1st dose of the Covid vaccine, June 19, 2020 [facility]. - Social history:: Smoking status: Patient denies any tobacco usage or history of. Patient uses alcohol, occasionally. Screenin:36 Abuse screen: Denies threats or abuse. Denies injuries from another. Nutritional kg screening: No deficits noted. Tuberculosis screening: No symptoms or risk factors identified. Fall Risk None identified. Assessment: 23:15 General: Appears comfortable. Pain: Complains of pain in chest. Neuro: No deficits ch4 noted. Cardiovascular: Reports chest pain, Heart tones S1 S2 present. Respiratory: Breath sounds are clear. GI: No deficits noted. : No deficits noted. EENT: No deficits noted. Derm: No deficits noted. Derm: No deficits noted. 11/23 08:29 General: Appears in no apparent distress. Pain: Denies pain. Neuro: No deficits noted. kh1 Cardiovascular: No deficits noted. Vital Signs: 11/22 21:27 BP 163 / 60; Pulse 80; Resp 20; Temp 97.2(TE); Pulse Ox 98% on R/A; Weight 63.5 kg (R); kg Height 5 ft. 1 in. (154.94 cm) (R); Pain 0/10; 23:12 BP 160 / 67; Pulse 75; Resp 15; Temp 97.9; Pulse Ox 100% on R/A; ch4 11/23 08:28 BP 136 / 53; Pulse 67; Resp 19; Temp 97.6; Pulse Ox 97% on R/A; kh1 11/22 21:27 Body Mass Index 26.45 (63.50 kg, 154.94 cm) kg ED Course: 11/22 19:16 Patient arrived in ED. bp1 21:31 Triage completed. kg 21:31 Arm band placed on right wrist. kg 21:36 Patient has correct armband on for positive identification. kg 21:36 No provider procedures requiring assistance completed. kg 21:36 Inserted saline lock: 20 gauge in right wrist, using aseptic technique. Blood collected.ds4 22:28 XRAY Chest (1 view) In Process Unspecified. EDMS 22:41 Felice Myers MD is Attending Physician. 7 22:42 Davina Ferreira, RN is Primary Nurse. ch4 23:06 CORONAVIRUS Sent. ch4 11/23 00:22 Ahmet Hadley MD is Hospitalizing Provider. 7 00:52 Trinity Ny MD is Hospitalizing Provider. la1 02:41 Safety Checks: The door is open or patient has been placed in a hallway bed/chair. A [facility] family member and/or friend is present and encouraged to stay. mother is bedside Items have not been removed Other: mother bedside. 02:42 Awaiting lab results. ch4 18:37 Patient did not have IV access during this emergency room visit. Patient maintains SpO2 ss saturation greater than 95% on room air. Administered Medications: 11/22 23:08 Drug: Aspirin Chewable Tablet 324 mg Route: PO; ch4 11/23 01:30 Drug: LanTUS (insulin glargine) 30 units Route: Sub-Q; Site: abdomen; [facility] Outcome: 00:23 Decision to Hospitalize by Provider. 7 02:42 Patient is placed in psych hold ch4 02:42 Condition: stable 02:42 Instructed on medical clearance for psych eval 17:36 Patient left the ED. ss Signatures: Dispatcher [employer] EDMS Vivian Olmos RN RN Ton Dominguez ds4 Fox Brock, VP COMPLIANCE-C VP COMPLIANCE-Cla1 Lori Watson Maurice, MD MD [facility] Mariana Arreola, RN RN Davina Ferreira, DI RN [facility] Manda Almodovar
--- NOTE | 2020-11-23 00:23 | EDPHYS ---
Physician Documentation [facility] Name: Pretty Guevara Age: 80 yrs Sex: Female : 1940 Arrival Date: 11/22/2020 Time: 19:16 Bed 14 Private MD: BALJIT Physician Felice Myers HPI: 11/22 22:59 This 80 yrs old Female presents to ER via Ambulatory with complaints of Chest mh7 Pain > 30 y/o. 22:59 The patient or guardian reports chest pain that is located primarily in the substernal mh7 area. Onset: 1 week(s) ago, and became worse today. The pain does not radiate. Associated signs and symptoms: Pertinent positives: nausea, shortness of breath, Pertinent negatives: abdominal pain, cough, diaphoresis, dizziness, headache, lower extremity pain, lower extremity swelling, lightheadedness, near syncope, palpitations, recent travel, syncope, vomiting. The chest pain is described as a pressure. Duration: The patient or guardian reports multiple episodes, that are intermittent, that wax and wane, with no pattern. Modifying factors: The symptoms are alleviated by nothing. the symptoms are aggravated by nothing. Severity of pain: At its worst the pain was moderate today, in the emergency department the pain has improved moderately. Historical: - Allergies: 21:31 No Known Allergies; kg - Home Meds: 21:31 metoprolol tartrate oral [Active]; Synthroid 75 mcg Oral tab 1 tab once daily [Active]; kg Novolog U-100 Insulin aspart 100 unit/mL Sub-Q soln [Active]; Lantus U-100 Insulin 100 unit/mL Sub-Q crtg 30 Units nightly [Active]; - PMHx: 21:31 Hypertensive disorder; thyroid dysfunction; IDDM; kg - PSHx: 21:31 Terry Foot SX; kg - Immunization history:: Adult Immunizations up to date, Client reports receiving the 2nd dose of the Covid vaccine, Date received: July 06, 2020 Client reports receiving the 1st dose of the Covid vaccine, June 19, 2020. - Social history:: Smoking status: Patient denies any tobacco usage or history of. Patient uses alcohol, occasionally. ROS: 22:59 Constitutional: Negative for fever, chills, and weight loss, Eyes: Negative for injury, mh7 pain, redness, and discharge, ENT: Negative for injury, pain, and discharge, Neck: Negative for injury, pain, and swelling, Back: Negative for injury and pain, : Negative for injury, bleeding, discharge, and swelling, MS/Extremity: Negative for injury and deformity, Skin: Negative for injury, rash, and discoloration, Neuro: Negative for headache, weakness, numbness, tingling, and seizure, Psych: Negative for depression, anxiety, suicide ideation, homicidal ideation, and hallucinations, Allergy/Immunology: Negative for hives, rash, and allergies, Endocrine: Negative for neck swelling, polydipsia, polyuria, polyphagia, and marked weight changes, Hematologic/Lymphatic: Negative for swollen nodes, abnormal bleeding, and unusual bruising. Exam: 22:59 Constitutional: This is a well developed, well nourished patient who is awake, alert, mh7 and in no acute distress. Head/Face: Normocephalic, atraumatic. Eyes: Pupils equal round and reactive to light, extra-ocular motions intact. Lids and lashes normal. Conjunctiva and sclera are non-icteric and not injected. Cornea within normal limits. Periorbital areas with no swelling, redness, or edema. Neck: Trachea midline, no thyromegaly or masses palpated, and no cervical lymphadenopathy. Supple, full range of motion without nuchal rigidity, or vertebral point tenderness. No Meningismus. Chest/axilla: Normal chest wall appearance and motion. Nontender with no deformity. No lesions are appreciated. Cardiovascular: Regular rate and rhythm with a normal S1 and S2. No gallops, murmurs, or rubs. Normal PMI, no JVD. No pulse deficits. Respiratory: Lungs have equal breath sounds bilaterally, clear to auscultation and percussion. No rales, rhonchi or wheezes noted. No increased work of breathing, no retractions or nasal flaring. Abdomen/GI: Soft, non-tender, with normal bowel sounds. No distension or tympany. No guarding or rebound. No evidence of tenderness throughout. Back: No spinal tenderness. No costovertebral tenderness. Full range of motion. Skin: Warm, dry with normal turgor. Normal color with no rashes, no lesions, and no evidence of cellulitis. MS/ Extremity: Pulses equal, no cyanosis. Neurovascular intact. Full, normal range of motion. Neuro: Awake and alert, GCS 15, oriented to person, place, time, and situation. Cranial nerves II-XII grossly intact. Motor strength 5/5 in all extremities. Sensory grossly intact. Cerebellar exam normal. Normal gait. Psych: Awake, alert, with orientation to person, place and time. Behavior, mood, and affect are within normal limits. Vital Signs: 21:27 BP 163 / 60; Pulse 80; Resp 20; Temp 97.2(TE); Pulse Ox 98% on R/A; Weight 63.5 kg (R); kg Height 5 ft. 1 in. (154.94 cm) (R); Pain 0/10; 23:12 BP 160 / 67; Pulse 75; Resp 15; Temp 97.9; Pulse Ox 100% on R/A; ch4 11/23 08:28 BP 136 / 53; Pulse 67; Resp 19; Temp 97.6; Pulse Ox 97% on R/A; kh1 11/22 21:27 Body Mass Index 26.45 (63.50 kg, 154.94 cm) kg MDM: 00:20 Differential diagnosis: abnormal EKG, acute myocardial infarction, acute pericarditis, mh7 anxiety, coronary artery disease chest wall pain, congestive heart failure costochondritis, esophagitis, gastritis, gastroesophageal reflux disease (GERD), myocarditis, peptic ulcer disease, pericarditis, pleurisy, pneumonia. HEART Score: History: Moderately Suspicious (1), ECG: Normal (0), Age: > or = 65 years (2), Risk Factors: > or = 3 Risk factors for atherosclerotic disease (2), [Hypercholesterolemia] [Hypertension] [DM] Troponin: < or = 1 x Normal Limit (0), Total Score = 5. The patient was given aspirin in the Emergency Department. Data reviewed: vital signs, nurses notes, lab test result(s), cardiac enzymes, CBC, electrolytes, urinalysis, EKG, radiologic studies, plain films. Data interpreted: Pulse oximetry: on room air is 100 %. Interpretation: normal. Counseling: I had a detailed discussion with the patient and/or guardian regarding: the historical points, exam findings, and any diagnostic results supporting the discharge/admit diagnosis, the presence of at least one elevated blood pressure reading (>120/80) during this emergency department visit, lab results, radiology results, the need for further work-up and treatment in the hospital. Response to treatment: the patient's symptoms have markedly improved after treatment. 00:23 Patient medically screened. 7 11/22 21:38 Order name: COVID-19 : Document "Date of Symptom Onset" if Symptomatic. kg 11/22 21:38 Order name: Basic Metabolic Panel; Complete Time: 00:17 kg 11/22 21:38 Order name: CBC with Diff; Complete Time: 22:52 kg 11/22 21:38 Order name: LFT's; Complete Time: 00:17 kg 11/22 21:38 Order name: Magnesium; Complete Time: 00:17 kg 11/22 21:38 Order name: NT PRO-BNP; Complete Time: 00:17 kg 11/22 21:38 Order name: PT-INR; Complete Time: 22:52 kg 11/22 21:38 Order name: Troponin (emerg Dept Use Only); Complete Time: 00:17 kg 11/22 21:50 Order name: CORONAVIRUS EDTX 11/22 22:43 Order name: SARS-COV-2 RT PCR; Complete Time: 22:52 EDTX 11/23 03:11 Order name: CBC with Automated Diff EDTX 11/23 03:21 Order name: Comprehensive Metabolic Panel EDTX 11/23 03:21 Order name: Troponin I EDTX 11/23 03:21 Order name: Lipid Profile EDTX 11/22 21:38 Order name: XRAY Chest (1 view) kg 11/22 21:38 Order name: EKG; Complete Time: 21:39 kg 11/22 21:38 Order name: Cardiac monitoring; Complete Time: 22:41 kg 11/22 21:38 Order name: EKG - Nurse/Tech; Complete Time: 21:38 kg 11/22 21:38 Order name: IV Saline Lock; Complete Time: 21:38 kg 11/22 21:38 Order name: Labs collected and sent; Complete Time: 22:41 kg 11/22 21:38 Order name: O2 Per Protocol; Complete Time: 21:38 kg 11/22 21:38 Order name: O2 Sat Monitoring; Complete Time: 21:38 kg 11/23 03:21 Order name: T4 Free EDTX 11/23 03:21 Order name: Thyroid Stimulating Hormone EDTX 11/23 03:34 Order name: Hemoglobin A1c EDTX 11/23 10:05 Order name: Glucose, Ancillary Testing EDMS 11/23 12:59 Order name: Troponin I EDMS 11/23 13:07 Order name: Glucose, Ancillary Testing EDMS Administered Medications: 11/22 23:08 Drug: Aspirin Chewable Tablet 324 mg Route: PO; ch4 11/23 01:30 Drug: LanTUS (insulin glargine) 30 units Route: Sub-Q; Site: abdomen; ch4 Disposition Summary: 11/23/20 00:23 Hospitalization Ordered Hospitalization Status: Observation mh7 Condition: Stable mh7 Problem: new mh7 Symptoms: have improved 7 Bed/Room Type: Standard [facility] Provider: Trinity Ny(11/23/20 00:52) [place] Location: [facility] ER HOLD(11/23/20 01:34) cg Room Assignment: ERHOLD-(11/23/20 01:34) cg Diagnosis - Chest pain, unspecified [facility] Forms: - Medication Reconciliation Form 7 - SBAR form [facility] Signatures: Dispatcher [employer] [facility] [place], COMPUTER SCIENCE INSTRUCTOR-C COMPUTER SCIENCE INSTRUCTOR-Cla1 Jacinta Contreras RN RN cg Felice Myers MD MD 7 Mariana Arreola RN RN kg Davina Ferreira, DI RN ch4 Corrections: (The following items were deleted from the chart) 00:52 00:23 Ahmet Hadley 7 la1 01:34 00:23 Telemetry/MedSurg (observation) 7 cg 01:34 00:23 mh7 cg
--- NOTE | 2020-11-23 01:09 | P.HP ---
Certification for Inpatient Patient admitted to: Observation With expected LOS: <2 Midnights Patient will require the following post-hospital care: None Practitioner: I am a practitioner with admitting privileges, knowledge of patient current condition, hospital course, and medical plan of care. Services: Services provided to patient in accordance with Admission requirements found in Title 42 Section 412.3 of the Code of Federal Regulations Patient History Date of Service: 11/23/20 Reason for admission: Chest pain History of Present Illness: 80-year-old female with history of hypertension, hypothyroidism, diabetes type 2, hyperlipidemia presents emergency department for chest pain. Patient reports that her of 61 years approximately 10 days ago, reports chest tightness intermittently radiating to the back and jaw since then. Patient has never had a cardiac evaluation in the past, also has family history of heart disease. Patient was evaluated in the emergency department labs were significant for white blood cell count 12.5 hemoglobin 11.9 glucose 303 Covid negative chest x-ray unremarkable, ED provider wishes to admit under observation for chest pain rule out. - Past Medical/Surgical History -: Hypertension -: Hyperlipidemia -: Hypothyroidism -: Diabetes mellitus type 2 -: Bilateral foot surgery Psychosocial/ Personal History: Retired lives with family - Family History Mother -: Heart disease, Diabetes, Liver disease Father -: Diabetes - Social History Smoking Status: Never smoker Alcohol use: No CD- Drugs: No Caffeine use: Yes Place of Residence: Home Review of Systems 10-point ROS is otherwise unremarkable Cardiovascular: Chest Pain, As per HPI Physical Examination - Physical Exam General: Alert, In no apparent distress, Oriented x3 HEENT: Atraumatic, PERRLA, Mucous membr. moist/pink, EOMI, Sclerae nonicteric Neck: Supple, 2+ carotid pulse no bruit, No LAD, Without JVD or thyroid abnormality Respiratory: Clear to auscultation bilaterally, Normal air movement Cardiovascular: Regular rate/rhythm, Normal S1 S2 Gastrointestinal: Normal bowel sounds, No tenderness Musculoskeletal: No tenderness Integumentary: No rashes Neurological: Normal speech, Normal strength at 5/5 x4 extr, Normal tone, Normal affect - Studies Laboratory Data (last 24 hrs) 11/22/20 22:25: PT 10.5, INR 0.91 11/22/20 22:25: WBC 12.50 H, Hgb 11.9 L, Hct 38.2, Plt Count 282 11/22/20 22:25: Sodium 138, Potassium 4.4, BUN 21 H, Creatinine 1.02, Glucose 303 H, Magnesium 2.0, Total Bilirubin 0.2, AST 17, ALT 15, Alkaline Phosphatase 96 Assessment and Plan - Plan Assessment: Chest pain rule out ACS Diabetes mellitus type 2 with hyperglycemia Hypertension Hyperlipidemia Hypothyroidism Plan: Chest pain rule out ACS: Monitor on telemetry, trend troponins, aspirin, statin, beta-dolly therapy. Cardiology consult in place echocardiogram ordered. Patient has never had cardiac evaluation in the past. Appreciate further input from cardiology. Diabetes mellitus type 2 with hyperglycemia: [facility] Accu-Chek, sliding scale insulin therapy. Will obtain an continue patient's home medications. Hypertension: Continue with metoprolol, other home medications. Hyperlipidemia: Continue home medication get lipid panel Hypothyroidism: Continue levothyroxine, get thyroid panel. DVT PPX: Lovenox Code status: Full Discharge Plan: Home Plan to discharge in: 24 Hours - Advance Directives Does patient have a Living Will: No Does patient have a Durable POA for Healthcare: No - Code Status/Comfort Care Code Status Assessed: Yes (Full code) Critical Care: No Time Spent Managing Pts Care (In Minutes): 55
[2020-11-23] MEDS ORDERED: ACETAMINOPHEN 500 MG TAB PO PRN (01:16)
[2020-11-23] MEDS ORDERED: ONDANSETRON 4 MG/2 ML VIAL IV PRN (01:16)
[2020-11-23] MEDS ORDERED: INSULIN GLARGINE 100 UNITS/ML SQ ONE (01:52)
[2020-11-23 03:02] LABS: Absolute Lymphocytes (CBC) 1.5 K/uL (0.7-4.9); Basophils % 0.5 % (0-1.3); Hematocrit 33.8 % (36.0-45.0); MPV 9.2 fL (7.6-11.3); RBC Red Blood Cell Count 4.22 M/uL (3.86-4.86)
[2020-11-23 03:11] VITALS: BMI 25.4
[2020-11-23 03:21] LABS: ALT/SGPT 14 U/L (12-78); AST/SGOT 10 U/L (15-37); Albumin 3.1 g/dL (3.4-5.0); Alkaline Phosphatase 83 U/L (45-117); BUN Blood Urea Nitrogen 20 mg/dL (7-18); Bicarbonate 23 mmol/L (21-32); Bilirubin Total 0.3 mg/dL (0.2-1.0); Glucose Level 303 mg/dL (74-106); HDL Cholesterol 75 mg/dL (40-60); LDL Cholesterol, Calculated 47 (<130); Potassium 4.7 mmol/L (3.5-5.1); Protein, Total 6.4 g/dL (6.4-8.2); Sodium Level 138 mmol/L (136-145); Thyroid Stimulating Hormone 0.964 uIU/mL (0.360-3.740); Troponin I < 0.02 ng/mL (0.0-0.045)
[2020-11-23] MEDS ORDERED: METOPROLOL TAR 25 MG TAB PO SCH (06:00)
[2020-11-23] MEDS ORDERED: LEVOTHYROXINE SOD 0.075 MG TAB PO SCH (06:30)
[2020-11-23] MEDS: INSULIN -REGULAR HUMAN 50 UNIT/0.5 ML ML SQ SCH ×2 (07:30→11:30)
[2020-11-23] MEDS ORDERED: ENOXAPARIN 40 MG/0.4 ML SQ SCH (09:00)
[2020-11-23] MEDS ORDERED: ASPIRIN EC 81 MG TAB PO SCH (09:00)
--- NOTE | 2020-11-23 09:28 | RAD REPORT ---
EXAM DESCRIPTION: Luanne Single View11/22/2020 10:27 pm CLINICAL HISTORY: Chest pain COMPARISON: none FINDINGS: The lungs appear clear of acute infiltrate. The heart is normal size IMPRESSION: No acute abnormalities displayed
[2020-11-23] MEDS ORDERED: ASPIRIN EC 81 MG TAB PO ONE (10:48)
[2020-11-23] MEDS ORDERED: INSULIN -REGULAR HUMAN 50 UNIT/0.5 ML ML ONE ×2 (10:49→14:38)
[2020-11-23] MEDS ORDERED: ENOXAPARIN 40 MG/0.4 ML SQ ONE (10:50)
[2020-11-23] MEDS ORDERED: ONDANSETRON 4 MG/2 ML VIAL ONE (11:49)
[2020-11-23 13:07] VITALS: BP 136/53; TEMP 97.6
[2020-11-23 17:46] VITALS: O2SAT 97
--- NOTE | 2020-11-24 10:59 | EKG ---
Test Date: 2020-11-22 Test Time: 21:25:38 Collections Technician: FORREST MEASUREMENT RESULTS: Intervals: Rate: 78 GA: 160 QRSD: 64 QT: 398 QTc: 453 Powell: P: GA: 160 QRS: 11 T: -28 INTERPRETIVE STATEMENTS: Sinus rhythm with premature atrial complexes in a pattern of bigeminy Low voltage QRS Cannot rule out Anterior infarct, age undetermined T wave abnormality, consider inferior ischemia Abnormal ECG No previous ECG available for comparison Electronically Signed On 11-24-20 10:54:28 CDT by Tyrone Monte
--- NOTE | 2020-11-24 10:59 | EKG ---
Test Date: 2020-11-22 Test Time: 23:04:42 High Density Finishing Operator: JESSICA MEASUREMENT RESULTS: Intervals: Rate: 73 RI: 166 QRSD: 68 QT: 398 QTc: 438 Sumner: P: 68 RI: 166 QRS: 44 T: 79 INTERPRETIVE STATEMENTS: Normal sinus rhythm with sinus arrhythmia Low voltage QRS Borderline ECG Compared to ECG 11/22/2020 21:25:38 Atrial premature complex(es) no longer present Myocardial infarct finding no longer present T-wave abnormality no longer present Possible ischemia no longer present Electronically Signed On 11-24-20 10:54:25 CDT by Tyrone Monte
== END 2020-11-23 17:30 | disposition home or self-care (01) ==
LOC: ER 19:12 → ERHOLD 11-23 01:02
PROVIDERS: ADMIT Hospitalist; ATTEND Hospitalist
DX: R07.9 Chest pain, unspecified (principal); E11.65 Type 2 diabetes mellitus with hyperglycemia; I10 Essential (primary) hypertension; E78.5 Hyperlipidemia, unspecified; E03.9 Hypothyroidism, unspecified; Z20.822 Contact with and (suspected) exposure to COVID-19; Z79.4 Long term (current) use of insulin; Z82.49 Family history of ischemic heart disease and other diseases of the circulatory system; Z83.3 Family history of diabetes mellitus
CPT/HCPCS: 93005 ×2; 85025 ×2; 80048; 36415; 83735; 85610; 80061; 82947 ×2; 80076; 84443; 83036; 84484 ×3; 84439; 80053; 83880; 71045; 96372; 99284; U0003; J1650; J2405; G0378 ×2; J1815